=== PATIENT | female | born 1950 | race American Indian/Alaskan Native ===

== ENCOUNTER 2016-07-10 10:24 | Outpatient (CLI) | payer MEDICARE ==
--- NOTE | 2016-07-10 12:57 | Mammography Report ---
BILATERAL MAMMOGRAM with CAD: HISTORY: Cancer screening. Comparison study is performed on December 18, 2012. FINDINGS: The breast tissue is heterogeneously dense, which could obscure detection of small masses (approximately 50%-75% glandular). No mass, distortion, suspicious calcification, or skin change is seen. IMPRESSION: Negative mammogram. There is no mammographic evidence of malignancy. RECOMMENDATION: Follow-up per ACS guidelines. BI-RADS CATEGORY: 1 = Negative ACR BI-RADS MAMMOGRAPHIC CODES: 0 = Needs additional imaging evaluation; 1 = Negative; 2 = Benign; 3 = Probably benign; 4 = Suspicious; 5 = Malignant; 6 = Known biopsy-proven malignancy COMMENT: 1. Dense breast tissue, i.e., adenosis, fibrocystic changes, etc., may obscure an underlying neoplasm. 2. Approximately 10% of cancers are not detected with mammography. 3. A negative mammography report should not delay biopsy if a clinically suspicious mass is present. COMMENT: Patient follow-up letters are generated in [employer].
== END 2016-07-10 10:25 | disposition home or self-care (01) ==
LOC: SPVWC 10:24
PROVIDERS: ATTEND Internal Medicine
DX: Z12.31 Encounter for screening mammogram for malignant neoplasm of breast (principal)
CPT/HCPCS: 77067; G0202

== ENCOUNTER 2017-11-26 08:23 | Outpatient (CLI) | payer MEDICARE ==
--- NOTE | 2017-11-26 10:23 | Ultrasound Report ---
ABDOMINAL ULTRASOUND: 11/26/17 08:23:00 CLINICAL: Abdominal pain and renal disease. FINDINGS: Ultrasound of the abdomen demonstrates less than optimal imaging of organs due to body habitus. The liver is normal size with normal overall echogenicity but imaging is inadequate for excluding liver mass and for optimum evaluation of the bile ducts and hepatic vasculature. The gallbladder has been removed. The inferior vena cava is not imaged. The pancreas is not imaged. The kidneys are small with poorly defined margins. The renal collecting systems are nondilated. Normal bilateral renal echogenicity. A possible solid right renal mass measures 2.9 x 1.7 cm. Its in the mid anterior portion of the kidney. Left renal cysts measure 1.8 x 1.9 cm and 1.6 x 1.2 cm. The spleen measures 6.3 x 2.6 cm. Normal splenic echogenicity. No ascites. The abdominal aorta measures 1.8 cm. IMPRESSION: Status post cholecystectomy and less than optimal imaging of abdomen. A possible solid 2.9 cm right renal mass. Recommend CT abdomen for further evaluation.
== END 2017-11-26 08:24 | disposition home or self-care (01) ==
LOC: SPVWC 08:23
PROVIDERS: ATTEND Internal Medicine
DX: R10.13 Epigastric pain (principal); Z90.49 Acquired absence of other specified parts of digestive tract
CPT/HCPCS: 76700